=== PATIENT | female | born 1970 | race Caucasian/White ===

== ENCOUNTER 2017-08-23 18:00 | Emergency (ER) | payer BC ==
[~2017-08-23] VITALS: Ht 162.6 cm; Wt 77.1 kg
[~2017-08-23 18:00] MED LIST: ATEN-41 PO; DULO20CA PO; LISI-600; LORA-259 PO; NEU300 PO; YAZ PO
[2017-08-23 18:21] VITALS: BP_SYST 125
--- NOTE | 2017-08-23 18:25 | NUR ---
Pt placed to ER waiting room with at side. Pt in stable condition.
--- NOTE | 2017-08-23 18:37 | NUR ---
Pt placed to ER bed 06, to caleb, report given to LEONID Rice.
[2017-08-23 18:53] LABS: BILIRUBIN,URINE NEGATIVE (NEGATIVE); BLOOD, URINE TRACE (NEGATIVE); CLARITY/URINE CLEAR (CLEAR); COLOR,URINE YELLOW (YELLOW); GLUCOSE,URINE NEGATIVE (NEGATIVE); KETONES,URINE NEGATIVE (NEGATIVE); LEUKOCYTE ESTERASE ,URINE NEGATIVE (NEGATIVE); NITRITE, URINE NEGATIVE (NEGATIVE); PH,URINE 5.5 (5.0-8.0); PROTEIN URINE NEGATIVE (NEGATIVE); UROBILINOGEN,URINE 0.2 (0.2-1.0)
[2017-08-23 18:55] LABS: BACTERIA,URINE FEW /HPF (None Seen); MUCUS,URINE None Seen /LPF (None Seen); RBC,URINE 0-3 /HPF (0-3); WBC,URINE 0-3 /HPF (0-3)
[2017-08-23] MEDS ORDERED: DIAZEPAM 10 MG/2 ML DISP.SYRIN IM ONE (19:00)
--- NOTE | 2017-08-23 19:00 | NUR ---
PT IN BED 6 WITH C/O BODY ACHES , ABBEY SHEPHERD CARE ATTENDANT AWARE.
--- NOTE | 2017-08-23 19:03 | NUR ---
ER ABBEY SHEPHERD RN at bedside examining patient.
[2017-08-23] MEDS ORDERED: DIPHENHYDRAMINE INJ 50 MG/ML VIAL IM ONE (20:15)
[2017-08-23] MEDS ORDERED: MORPHINE SULFATE 10 MG/ML VIAL IM ONE (20:15)
--- NOTE | 2017-08-23 20:30 | NUR ---
MEDICATED PER ORDERS , TOLERATED WELL.
[2017-08-23] MEDS ORDERED: CYCLOBENZAPRINE HCL 10 MG TABLET (FLEXERIL) PO ONE (21:00)
[2017-08-23 21:18] VITALS: BP_SYST 118
--- NOTE | 2017-08-23 21:20 | NUR ---
Patient given written and verbal discharge instructions and verbalizes understanding. ER MD discussed with patient the results and treatment provided. Patient in stable condition. ID arm band removed. Rx of FLEXERIL, MOBIC,TRAMADOL,VOLTARIN given. Patient educated on pain management and to follow up with PMD. Pain Scale 0/10. Opportunity for questions provided and answered.
== END 2017-08-23 21:18 | disposition home or self-care (01) ==
LOC: SED 18:00
DX: S16.1XXA Strain of muscle, fascia and tendon at neck level, initial encounter (principal); M79.1 Myalgia; I10 Essential (primary) hypertension; Z88.2 Allergy status to sulfonamides; Z79.899 Other long term (current) drug therapy; X58.XXXA Exposure to other specified factors, initial encounter; Y93.89 Activity, other specified; Y92.89 Other specified places as the place of occurrence of the external cause; Y99.8 Other external cause status
CPT/HCPCS: 81000; 81025; 96372; 99284; J1200; J2270; J3360